=== PATIENT | male | born 1985 | race Caucasian/White ===

== ENCOUNTER 2021-01-26 13:20 | Emergency (ER) | payer BC, OTHER ==
[2021-01-26] MEDS ORDERED: Metoprolol Tartrate 50 MG Tab PO STA (13:36)
[2021-01-26] MEDS ORDERED: Sodium Chloride 0.9% 10 ML Syringe FLUSH PRN (13:36)
[2021-01-26] MEDS ORDERED: LORazepam 2 MG/ML SDV IVPUSH STA (13:55)
[2021-01-26] MEDS ORDERED: Potassium Chloride 20 MEQ Tab.ER PO STA (14:13)
--- NOTE | 2021-01-26 14:17 | EDM.PDOC ---
ED HPI GENERAL MEDICAL PROBLEM - General Stated Complaint: TACHYCARDIA Time Seen by Provider: 01/26/21 13:30 Source of Information: Reports: Patient History Limitations: Reports: No Limitations - History of Present Illness INITIAL COMMENTS - FREE TEXT/NARRATIVE: Patient presented to the ED because of palpitations, dyspnea which started at 2 pm. He said he drank 5-6 cups of coffee today and 1 can of pop. There is no chest pain, dizziness, nausea,vomiting. He was hyperventilating when he arrived in the ED. ED ROS GENERAL - Review of Systems Review Of Systems: See Below Constitutional: Reports: No Symptoms HEENT: Reports: No Symptoms Respiratory: Reports: No Symptoms Cardiovascular: Reports: Dyspnea on Exertion Endocrine: Reports: No Symptoms GI/Abdominal: Reports: No Symptoms : Reports: No Symptoms Musculoskeletal: Reports: No Symptoms Skin: Reports: No Symptoms Neurological: Reports: No Symptoms Psychiatric: Reports: No Symptoms ED EXAM, GENERAL - Physical Exam Exam: See Below Exam Limited By: No Limitations General Appearance: Alert, No Apparent Distress Eye Exam: Bilateral Eye: PERRL Ears: Normal External Exam, Normal Canal Nose: Normal Inspection, Normal Mucosa, No Blood Throat/Mouth: Normal Inspection, Normal Lips, Normal Teeth, Normal Oropharynx, Normal Voice Head: Atraumatic, Normocephalic Neck: Normal Inspection, Supple, Non-Tender, Full Range of Motion Respiratory/Chest: No Respiratory Distress, Lungs Clear, Normal Breath Sounds, No Accessory Muscle Use, Chest Non-Tender Cardiovascular: Normal Peripheral Pulses, No Edema, No Gallop, No JVD, No Murmur, No Rub, Tachycardia GI/Abdominal: Normal Bowel Sounds, Soft, Non-Tender, No Organomegaly Back Exam: Normal Inspection, Full Range of Motion Extremities: Normal Inspection, Normal Range of Motion, Non-Tender #1 Interpretation EKG Date: 01/26/21 Time: 13:44 Rhythm: NSR Rate (Beats/Min): 119 [place]: Normal P-Wave: Present QRS: Normal [place]/PQ Interval: 154 Comparison: NA - No Prior EKG EKG Interpretation Comments: Sinus Tach Course - Vital Signs Text/Narrative:: Lab/EKG result was reviewed and discussed with patient and family Metoprolol tartrate 50 mg PO x1 Ativan 1 mg IV x1 Klor con 40 meq po x1 Last Recorded V/S: Last Vital Signs Temp 36.4 C 01/26/21 13:25 Pulse 120 H 01/26/21 13:30 Resp 25 H 01/26/21 13:25 BP 168/106 H 01/26/21 13:30 Pulse Ox 99 01/26/21 13:25 - Orders/Labs/Meds Orders: Active Orders 24 hr Category Date Time Status Sodium Chloride 0.9% [Saline Flush] Med 01/26/21 13:36 Active 10 ml FLUSH ASDIRECTED PRN Saline Lock Insert [OM.PC] Routine Oth 01/26/21 13:36 Ordered Medication Orders Sodium Chloride (Sodium Chloride 0.9% 10 Ml Syringe) 10 ml FLUSH ASDIRECTED PRN PRN Reason: Keep Vein Open Last Admin: 01/26/21 14:09 Dose: 10 ml Documented by: AIDE Labs: Laboratory Tests 01/26/21 01/26/21 01/26/21 Range/Units 13:45 13:45 13:45 WBC 6.9 (3.2-10.1) x10-3/uL RBC 5.28 (3.90-5.90) x10(6)uL Hgb 16.2 (12.9-17.7) g/dL Hct 47.4 (38.3-50.1) % MCV 89.7 (80.8-98.7) fL MCH 30.6 (27.0-33.3) pg MCHC 34.1 (28.7-35.3) g/dL RDW 12.9 (12.4-15.0) % Plt Count 341 (117-477) x10(3)uL MPV 6.6 L (6.7-11.0) fL Neut % (Auto) 61.4 (40.3-71.8) % Lymph % (Auto) 29.6 (15.8-45.3) % [place] % (Auto) 7.6 (5.5-15.2) % Eos % (Auto) 0.8 (0.1-6.8) % Baso % (Auto) 0.6 (0.3-3.8) % Neut # (Auto) 4.2 (1.7-6.9) x10-3/uL Lymph # (Auto) 2.0 (0.5-4.5) x10-3/uL [place] # (Auto) 0.5 (0.0-1.2) x10-3/uL Eos # (Auto) 0.1 (0.0-0.6) x10-3/uL Baso # (Auto) 0.0 (0.0-0.3) x10-3/uL Sodium 140 (135-145) mmol/L Potassium 3.3 L (3.5-5.3) mmol/L Chloride 102 (100-110) mmol/L Carbon Dioxide 26 (21-32) mmol/L BUN 14 (7-18) mg/dL Creatinine 1.4 H (0.70-1.30) mg/dL Est Cr Clr Drug Dosing TNP Estimated GFR (MDRD) 58 L (>60) BUN/Creatinine Ratio 10.0 (9-20) Glucose 149 H (80-116) mg/dL Calcium 9.2 (8.6-10.2) mg/dL Magnesium 1.8 (1.8-2.5) mg/dL Total Bilirubin 0.5 (0.1-1.3) mg/dL AST 10 (5-25) IU/L ALT 22 (12-36) U/L Alkaline Phosphatase 56 (56-112) IU/L Troponin I < 4.0 L (4.0-60.3) pg/mL Total Protein 7.8 (6.0-8.0) g/dL Albumin 4.3 (3.5-5.2) g/dL Globulin 3.5 g/dL Albumin/Globulin Ratio 1.2 Meds: Medications Generic Name Dose Route Start Last Admin Trade Name Freq PRN Reason Stop Dose Admin Sodium Chloride 10 ml 01/26/21 13:36 01/26/21 14:09 Sodium Chloride 0.9% 10 Ml Syringe FLUSH 10 ml ASDIRECTED PRN Administration Keep Vein Open Discontinued Medications Generic Name Dose Route Start Last Admin Trade Name Freq PRN Reason Stop Dose Admin Lorazepam 1 mg 01/26/21 13:55 01/26/21 14:05 Lorazepam 2 Mg/Ml Sdv IVPUSH 01/26/21 13:56 1 mg NOW STA Administration Metoprolol Tartrate 50 mg 01/26/21 13:36 01/26/21 13:30 Metoprolol Tartrate 50 Mg Tab PO 01/26/21 13:37 50 mg NOW STA Administration Potassium Chloride 40 meq 01/26/21 14:13 01/26/21 14:19 Potassium Chloride 20 Meq Tab.Er PO 01/26/21 14:14 40 meq NOW STA Administration Departure - Departure Time of Disposition: 14:30 Disposition: Home, Self-Care 01 Condition: Good Clinical Impression: Palpitations, Hypokalemia, Anxiety Instructions: Hypokalemia, Sinus Tachycardia, Palpitations, [id number], Managing Anxiety, Adult Referrals: Aric Rodriguez MD [Primary Care Provider] - Forms: ED Department Discharge Additional Instructions: Please read discharge instructions on palpitations, low potassium, anxiety Do not drink too much caffeine, it can cause rapid heart beat, palpitations, anxiety Follow up as needed Sepsis Event Note (ED) - Focused Exam Vital Signs: Vital Signs Temp Pulse Pulse Resp BP BP Pulse Ox 01/26/21 13:30 120 H 168/106 H 01/26/21 13:25 36.4 C 127 H 25 H 176/106 H 99 - My Orders Last 24 Hours: My Active Orders 01/26/21 13:36 Sodium Chloride 0.9% [Saline Flush] 10 ml FLUSH ASDIRECTED PRN Saline Lock Insert [OM.PC] Routine - Assessment/Plan Last 24 Hours: My Active Orders 01/26/21 13:36 Sodium Chloride 0.9% [Saline Flush] 10 ml FLUSH ASDIRECTED PRN Saline Lock Insert [OM.PC] Routine
== END 2021-01-26 14:35 | disposition home or self-care (01) ==
LOC: FB.ED 13:20
DX: F41.9 Anxiety disorder, unspecified (principal); E87.6 Hypokalemia; R00.0 Tachycardia, unspecified
CPT/HCPCS: 36415; 80053; 83735; 84484; 85025; 96374; 99285; A9270; J2060